=== PATIENT | female | born 1935 | race Caucasian/White ===

== ENCOUNTER 2021-03-12 17:01 | Inpatient (IN) | payer MEDICARE ==
[~2021-03-12] VITALS: Ht 162.6 cm; Wt 73.1 kg
[2021-03-12 20:41] LABS: BASOPHIL 0.7 % (0-2); EOSINOPHIL 3.7 % (0-7); HCT 51.8 % (37.0-47.0); HGB 17.1 g/dl (12.5-16.0); LYMPHOCYTE 39.9 % (15-48); MCH 31.6 pg (25.0-31.0); MCV 95.7 fL (78.0-100.0); MONOCYTE 8.6 % (0-12); MPV 10.7 fL (6.0-9.5); NRBC 0; PLT 185 K/uL (150-400); RBC 5.41 M/uL (4.20-5.40); RDW 14.2 % (11.5-14.0); WBC 8.2 K/uL (4.0-10.5)
[2021-03-12 20:45] LABS: INR 1.26 (0.9-1.2); PROTHROMBIN TIME 15.1 SECONDS (11.8-13.4)
[2021-03-12 20:53] LABS: ALBUMIN 3.1 g/dL (3.4-5.0); BILIRUBIN - TOTAL 0.9 mg/dL (0.2-1.0); BUN/CREAT RATIO (CALC) 17.2 RATIO; CREATININE 0.64 mg/dL (0.51-0.95); POTASSIUM 3.3 mmol/L (3.5-5.1); TOTAL PROTEIN 8.1 g/dL (6.4-8.2)
[2021-03-12 21:05] LABS: BILIRUBIN NEGATIVE (NEGATIVE); BLOOD TRACE-INTACT Ery/uL (NEGATIVE); CLARITY CLOUDY (CLEAR); COLOR YELLOW (YELLOW); GLUCOSE (U) NORMAL (NORMAL); LEUKOCYTES 1+ Leu/uL (NEGATIVE); NITRITE NEGATIVE (NEGATIVE); PROTEIN 1+ mg/dL (NEGATIVE); SPECIFIC GRAVITY >=1.030 (1.001-1.030)
[2021-03-12 21:06] LABS: AMPHETAMINES NEGATIVE (NEGATIVE); BARBITURATES NEGATIVE (NEGATIVE); ECSTASY (MDMA) NEGATIVE (NEGATIVE); MARIJUANA (THC) NEGATIVE (NEGATIVE); METHADONE NEGATIVE (NEGATIVE); OPIATES NEGATIVE (NEGATIVE); OXYCODONE NEGATIVE (NEGATIVE)
[2021-03-12 21:12] LABS: BACTERIA 3+; URINARY RBC RARE; URINARY WBC 20-50
[2021-03-12 21:13] LABS: AMORPHOUS URATES CRYSTALS MODERATE
[2021-03-13 05:34] LABS: BASOPHIL 0.6 % (0-2); EOSINOPHIL 5.7 % (0-7); HCT 48.7 % (37.0-47.0); HGB 15.7 g/dl (12.5-16.0); LYMPHOCYTE 34.9 % (15-48); MCH 31.2 pg (25.0-31.0); MCHC 32.2 g/dL (32.0-36.0); MCV 96.8 fL (78.0-100.0); MONOCYTE 11.3 % (0-12); MPV 10.8 fL (6.0-9.5); NEUTROPHIL 47.3 % (41-80); NRBC 0; PLT 159 K/uL (150-400); RBC 5.03 M/uL (4.20-5.40); WBC 8.1 K/uL (4.0-10.5)
[2021-03-13] MEDS ORDERED: ASPIRIN EC81 MG PO (05:52)
[2021-03-13] MEDS ORDERED: LIPITOR40 MG PO (05:53)
[2021-03-13] MEDS ORDERED: LOPRESSOR25 MG PO (05:53)
[2021-03-13] MEDS ORDERED: LASIX20 MG PO (05:53)
[2021-03-13] MEDS ORDERED: K-DUR20 MEQ PO (05:54)
[2021-03-13 06:15] LABS: BUN/CREAT RATIO (CALC) 15.8 RATIO; CREATININE 0.57 mg/dL (0.51-0.95); POTASSIUM 3.3 mmol/L (3.5-5.1)
--- NOTE | 2021-03-13 12:07 | NUR ---
0830 THIS NURSE AND INC STOREY WENT TO BEDSIDE AND COUNTED THE MONEY THAT THE PATIENT HAD IN HER BRIEF, IT TOTALED 230.00, SECURITY WAS CALLED TO FLOOR TO LOCK MONEY IN SAFE. THIS NURSE AND SECURITY RECOUNTED MONEY AND PLACED IN AN ENVELOPE AND SEALED,PLACED DOWNSTAIRS IN SAFE BY SECURITY
--- NOTE | 2021-03-13 17:07 | NUR ---
TC FROM [facility] WITH [facility] [phone]. SHE ADVISED THAT PT, SON, JARRELL LUJAN HAD SECURED GUARDIANSHIP OF HIS MOTHER AND WOULD NEED PLACEMENT. SPOKE WITH JARRELL VIA PHONE AND HE WAS COMING TO THE HOSPITAL. MET WITH JARRELL AND HIS AT THE HOSPITAL. JARRELL WOULD LIKE HIS MOTHER PLACED CLOSE TO HIM HE RESIDES IN [facility]. REFERRALS SENT TO [facility], FAX [phone] [facility] [place] [phone] FAX [phone] AND [facility] [phone], FAX [phone]ING [address] PL[address] PT IN [place] BUT THE FACILITIES IN [place] ARE ON HOLD DUE TO COVID RESTRICTIONS. ADVISED SON OF THIS INFORMATION AND HE WAS AGREEABLE TO GO OUTSIDE OF [place] AND MOVE CLOSER TO [facility].
[2021-03-15 06:03] LABS: HCT 47.4 % (37.0-47.0); HGB 15.5 g/dl (12.5-16.0); MCH 31.4 pg (25.0-31.0); MCHC 32.7 g/dL (32.0-36.0); RBC 4.94 M/uL (4.20-5.40); WBC 9.2 K/uL (4.0-10.5)
[2021-03-15 06:37] LABS: BUN/CREAT RATIO (CALC) 16.7 RATIO; CREATININE 0.6 mg/dL (0.51-0.95); MAGNESIUM 1.7 mg/dL (1.8-2.4); POTASSIUM 3.7 mmol/L (3.5-5.1)
--- NOTE | 2021-03-15 14:42 | NUR ---
RD consulted for assessment d/t low albumin. Biochemical values are not considererd a relevant marker for inadequate protein intake, howeve can be used for screening as well as assessment of nutrition needs. RD will visit for wt history and discussions re: home nutrition. Currently on Cardiac diet with >75% intake at meals. MST of 0; pt denied wt loss or loss of appetite upon nursing admission assessment. Patient to be d/c to LTC; meal prep and food availability will be met in this living situation.
[2021-03-16 00:34] LABS: BILIRUBIN NEGATIVE (NEGATIVE); BLOOD 3+ Ery/uL (NEGATIVE); CLARITY CLEAR (CLEAR); COLOR YELLOW (YELLOW); GLUCOSE (U) NORMAL (NORMAL); LEUKOCYTES NEGATIVE Leu/uL (NEGATIVE); NITRITE NEGATIVE (NEGATIVE); PROTEIN NEGATIVE (NEGATIVE); UROBILINOGEN 0.2 mg/dL (0.2-1.0); pH 5.5 (5.0-9.0)
[2021-03-16 00:43] LABS: BACTERIA TRACE
[2021-03-17 04:57] LABS: HGB 15.3 g/dl (12.5-16.0); MCH 31.5 pg (25.0-31.0); MCHC 33.3 g/dL (32.0-36.0); MCV 94.7 fL (78.0-100.0); MPV 10.7 fL (6.0-9.5); RBC 4.86 M/uL (4.20-5.40); RDW 14.1 % (11.5-14.0); WBC 9.1 K/uL (4.0-10.5)
[2021-03-17 05:24] LABS: BUN/CREAT RATIO (CALC) 21.5 RATIO; CREATININE 0.65 mg/dL (0.51-0.95); POTASSIUM 3.9 mmol/L (3.5-5.1)
--- NOTE | 2021-03-20 14:27 | NUR ---
TC TO DOMIINCK AT [facility]. SHE ADVISED THAT THE PAPERWORK TO ACCEPT PT. WAS OVERNIGHT TO SON YESTERDAY. SHE ADVISED THAT SOON SHE RECEIVES THE SIGNED PAPERWORK BACK PT WILL BE ACCEPTED. TC TO TAMMIE TO ADVISE OF THIS INFORMATION, ALSO CALLED [facility]PS WORKER [facility] AT [phone]. HAD TO LEAVE A MESSAGE FOR BOTH.
--- NOTE | 2021-03-21 09:17 | NUR ---
SPOKE WITH DOMINICK AT [facility]. MS. LUJAN HAS BEEN ACCEPTED. TC TO TAMMIE HAD TO LEAVE MESSAGE TO ADVISE THAT HIS MOTHER WILL BE READY FOR DISCHARGE SOON DC SUMMARY IS TRANSCRIBED. HE CAN PICK HER UP AND COMPLETE PAPERWORK AT [facility] WHEN HE GETS THERE. REPORT NUMBER TO [facility] IS [phone]. FAX IS [phone].
[2021-03-21] MEDS ORDERED: ELIQUIS5 MG PO (09:48)
== END 2021-03-21 13:50 | DRG 689 ==
LOC: FER 17:01 → FMS 22:00
PROVIDERS: Emergency Medicine; Nurse Practitioner; ADMIT Internal Medicine
DX: N30.01 Acute cystitis with hematuria (principal); G93.41 Metabolic encephalopathy; I48.20 Chronic atrial fibrillation, unspecified; E87.1 Hypo-osmolality and hyponatremia; F03.90 Unspecified dementia, unspecified severity, without behavioral disturbance, psychotic disturbance, mood disturbance, and anxiety; Z20.822 Contact with and (suspected) exposure to COVID-19; Z66 Do not resuscitate; E86.1 Hypovolemia; E87.6 Hypokalemia; I50.9 Heart failure, unspecified; I25.10 Atherosclerotic heart disease of native coronary artery without angina pectoris; M19.90 Unspecified osteoarthritis, unspecified site; R79.1 Abnormal coagulation profile; Z91.81 History of falling; Z88.0 Allergy status to penicillin; Z90.49 Acquired absence of other specified parts of digestive tract; Z86.73 Personal history of transient ischemic attack (TIA), and cerebral infarction without residual deficits
CPT/HCPCS: 36415; 70450; 71045; 71046; 80048; 80053; 80061; 80305; 81001; 82553; 83605; 83735; 83880; 84484; 85025; 85610; 87088; 93005; 94760; 97116; 97161; 97166; 97530-GP; 97535; J0696; J3480; J7030; U0002